=== PATIENT | female | born 1965 | race Hispanic/Latino ===

== ENCOUNTER 2020-07-07 08:32 | Outpatient (CLI) | payer OTHER ==
[2020-07-07 15:05] LABS: Bilirubin Neg (Negative); Blood, Urine 10 (Negative); Clarity Slightly Cloudy (Clear); Glucose, Urine (Dipstick) 100 mg/dL (Negative); Ketone, Urine Negative (Negative); Leukocyte 500 (Negative); Nitrite Negative (Negative); Protein, Urine (Dipstick) Negative (Neg-Trace); Specific Gravity, Urine 1.015 (1.002-1.036)
[2020-07-07 15:11] LABS: #Eosinphils 0.1 10x3/uL (0.0-0.5); #Monocytes 0.4 10x3/uL (0.0-1.1); #Neutrophils 3.1 10x3/uL (1.5-8.4); %Basophils 0.6 % (0.0-2.0); %Eosinophils 1.9 % (0.0-6.0); %Lymphocytes 28.1 % (18.0-47.0); %Monocytes 8.3 % (0.0-10.0); %Neutrophils 60.9 % (40.0-75.0); Hemoglobin 12.5 g/dL (12.0-16.0); Mean Corpuscular Hemoglobin 30.3 PG (27.0-33.0); Mean Corpuscular Volume 94.9 fl (80.0-100.0); Mean Platelet Volume 14.5 fl (7.4-10.4); Platelet Count 138 10x3/uL (130-400); Red Blood Cell (RBC) Count 4.12 10x6/uL (3.90-5.20); White Blood Cell (WBC) Count 5.2 10x3/uL (4.5-11.0)
[2020-07-07 15:45] LABS: Bacteria/HPF 2+ HPF (None Seen); RBC/HPF 0-3 HPF (0-3); Transitional Epithelial 0-3 HPF (None Seen)
[2020-07-08 02:11] LABS: SARS-CoV-2 MS2 Positive; SARS-CoV-2 N Gene Negative; SARS-CoV-2 S Gene Negative; SARS-CoV-2 by NAA Not Detected (NotDetected); SARS-CoV-2 orf1ab Negative
== END 2020-07-07 08:33 | disposition home or self-care (01) ==
LOC: LABBT 08:32
PROVIDERS: ATTEND Orthopaedic Surgery Hand Surgery
DX: Z01.812 Encounter for preprocedural laboratory examination (principal); M65.332 Trigger finger, left middle finger; M65.311 Trigger thumb, right thumb; Z20.828 Contact with and (suspected) exposure to other viral communicable diseases
CPT/HCPCS: 81001; 85025; 87635; U0003

== ENCOUNTER 2020-07-12 07:55 | Day surgery (SDC) | payer OTHER ==
[2020-07-05 10:56] VITALS: BMI 35.4
[2020-07-12 10:54] LABS: Bacteria/HPF None Seen HPF (None Seen); RBC/HPF 0-3 HPF (0-3); Squamous Epithelial None Seen HPF (0-3); WBC/HPF 0-3 HPF (0-3)
[2020-07-12 10:58] LABS: Bilirubin Negative (Negative); Blood, Urine Negative (Negative); Clarity Clear (Clear); Glucose, Urine (Dipstick) Normal (Negative); Ketone, Urine Negative (Negative); Leukocyte Negative Leu/uL (Negative); Nitrite Negative (Negative); Protein, Urine (Dipstick) 10 mg/dL (Neg-Trace); Specific Gravity, Urine 1.022 (1.002-1.036); Urobilinogen 6 mg/dL (Less than 2)
[2020-07-12] MEDS ORDERED: Bacitracin Zinc Ointment 30 gm TUBE ONE (11:01)
[2020-07-12] MEDS ORDERED: Betamet Acet/Betamet Na Ph 30 MG/5 ML VIAL ONE ×2 (11:01→11:02)
[2020-07-12] MEDS ORDERED: Bupivacaine PF 0.5% 30 ML VIAL ONE (11:01)
[2020-07-12] MEDS ORDERED: Sodium Chloride 0.9% 10 ML ONE (11:01)
[2020-07-12] MEDS ORDERED: Lidocaine 1% PF 5 ML VIAL ONE (11:05)
[2020-07-12] MEDS ORDERED: Ondansetron PF 4 MG/2 ML Vial ONE (11:05)
[2020-07-12] MEDS ORDERED: Ketorolac Tromethamine 30 MG/ML VIAL ONE (11:05)
[2020-07-12] MEDS ORDERED: Dexamethasone 20 MG/5 ML VIAL ONE (11:05)
[2020-07-12] MEDS ORDERED: PHENYLEPHRINE-NS 100 MCG/ML 10 ML SYRINGE ONE (11:05)
[2020-07-12] MEDS ORDERED: PROPOFOL 200 MG/20 ML VIAL ONE (11:05)
[2020-07-12] MEDS ORDERED: Fentanyl 100 MCG/2 ML VIAL ONE (11:06)
--- NOTE | 2020-07-12 13:31 | OP ---
DATE OF PROCEDURE: 07/12/2020 PREOPERATIVE DIAGNOSES: 1. Right thumb trigger finger. 2. Left middle finger trigger finger. POSTOPERATIVE DIAGNOSES: 1. Right thumb trigger finger. 2. Left middle finger trigger finger. FINDINGS: Very thick A1 pulleys 3 mm as some portions with no tenosynovitis or ganglion. PROCEDURE PERFORMED: 1. At the right thumb: Right thumb trigger finger release. 2. At the left middle finger, left middle finger trigger digit release. ANESTHESIA: General LMA technique augmented with 10 mL of 0.5% Marcaine given before incision on both sides. Celestone placed 2.5 mL in each site. INDICATIONS: Failed conservative treatment. Patient with diabetes. DESCRIPTION OF PROCEDURE: After successful general endotracheal anesthesia, the limb was prepped and draped. We then gave the right thumb 10 mL of 0.5% Marcaine and in the left middle finger 10 mL of 0.5% Marcaine. Five minutes later, we inflated the tourniquet after exsanguinating the limb to 250 mmHg pressure on the right side. A zigzag incision was made with the acute angle away from the web space longitudinally at the thumb A1 kim region/palmar MP flexion crease. We carried this through skin and subcutaneous tissue, identified both the radial and ulnar branches of the digital nerve and protected them from the center of the field. In the midline was very thick A1 kim, and we opened this completely, freed the tendon, inspected it on both sides, palmar and dorsal. No mass effect and no tenosynovitis. We placed 2 mL Celestone on this wound and then released the tourniquet, obtained hemostasis, closed the wound with interrupted 4-0 nylon in simple pattern. Bulky dressing was applied. Bacitracin, Adaptic, 4 x 4, and Kerlix. We then on the left side, exsanguinated the limb and inflated the tourniquet, performed a mirror image procedure, except it was over the middle finger on the left. This also showed the same thickening without tenosynovitis or mass seen. Tourniquet time was the same on both sides with estimated blood loss and the Marcaine injection. The only difference was that a 2 inch Zackary was used on the thumb side, right, and a 3 inch on the middle finger side, left. Job ID: [id number]
== END 2020-07-12 14:10 | disposition home or self-care (01) ==
LOC: SDC 07:55
PROVIDERS: ATTEND Orthopaedic Surgery Hand Surgery
PROC: 0LN80ZZ Release Left Hand Tendon, Open Approach (ICD-10-PCS; principal; 2020-07-12)
PROC: 0LN70ZZ Release Right Hand Tendon, Open Approach (ICD-10-PCS; principal; 2020-07-12)
DX: M65.332 Trigger finger, left middle finger (principal); M65.311 Trigger thumb, right thumb; Z79.82 Long term (current) use of aspirin; Z79.84 Long term (current) use of oral hypoglycemic drugs; Z79.899 Other long term (current) drug therapy
CPT/HCPCS: 81001; J0690; J0702; J1100; J1885; J2405; J2704; J3010; J3490; S0020

== ENCOUNTER 2023-07-02 09:04 | Outpatient (CLI) | payer BC | END 2023-07-02 09:05 | disposition home or self-care (01) | LOC: BICMAMMO 09:04 | PROVIDERS: ATTEND Family Medicine | DX: Z12.31 Encounter for screening mammogram for malignant neoplasm of breast (principal); Z80.3 Family history of malignant neoplasm of breast | CPT/HCPCS: 77063; 77067 ==